=== PATIENT | female | born 1945 | race Caucasian/White ===

== ENCOUNTER 2017-08-27 07:13 | Emergency (ER) | payer MEDICARE, BC ==
[~2017-08-27] VITALS: Ht 157.5 cm; Wt 66.0 kg
[~2017-08-27 07:13] MED LIST: ASPI-516 CHEW; CITA40TA4 PO; DIAZ2 PO; DULC10SU3 RECTAL; FLUT50SP EACH NARE; LEVO50TA4 PO; LYRI75CA PO; MAGICADU2 SWISH-SWAL; METO25TA3 PO; METO5TAB PO; PANT40TA3 PO; PERI8.6T PO; SUMA6INJ SQ; TRAM50TA PO
[2017-08-27 07:15] VITALS: BP 151/72; PULSE 88; RESP 18; TEMP 97.8; O2SAT 95
[2017-08-27] MEDS ORDERED: SODIUM CHLOR 0.9% 1000 ML INJ 1,000 ML IV SCH (07:47)
--- NOTE | 2017-08-27 07:58 | PD ---
HPI Chief Complaint: Flank/Kidney Pain Time Seen by Provider: 07:36 Travel History International Travel<30 days: No Contact w/Intl Traveler<30days: No Traveled to known affect area: No History of Present Illness HPI This 71 year-old woman presents to the emergency department complaining of abdominal pain. She reports she's had a history of intermittent right sided abdominal pain is been going on for several months. She had similar pains yesterday. Early this morning however she started to develop severe left-sided abdominal pain. Is associated with nausea. She looks a little bit of retching yesterday but no vomiting today. She also has urinary symptoms, feeling like she has to urinate or have any go urinate frequently. No fevers or chills. Only abdominal surgical history is previous appendectomy. She was worked up for gallbladder problems with her previous right sided abdominal pains. She takes tramadol for chronic pain and fibromyalgia. Chest has chronic trouble with constipation. She had a little bit of diarrhea yesterday and took some Imodium and feels constipated now. History Past Medical History Narrative Medical Migraines Depression Hypertension TIA, on Plavix Social History Alcohol Use: No Tobacco Use: No Allergies-Medications (Allergen,Severity, Reaction): Coded Allergies: penicillin G (Unverified Allergy, Mild, vaginitis, 08/27/17) Reported Meds & Prescriptions Reported Meds & Active Scripts Active Magic Mouthwash Adult Liq (Multi-Ingredient Mouthwash/Gargle) 120 Ml Susp 5 Ml SWISH-SWAL ACHS Each 5mL contains: Nystatin 200,000units, Diphenhydramine 4.25mg, Viscous Lidocaine 10mg, Schmid syrup 0.8 mL Tramadol (Tramadol HCl) 50 Mg Tab 50 Mg PO BID PRN Citalopram (Citalopram Hydrobromide) 40 Mg Tab 40 Mg PO DAILY Fluticasone Nasal [place] 50 Mcg/Act Naspr 50 Mcg EACH NARE BID 50 mcg/spray Sumatriptan Inj (Sumatriptan Succinate) 6 Mg/0.5 M[address] Ctr 6 Mg SQ ONCE PRN May repeat dose in 1 hour if needed. Rebeca-Colace (Sennosides-Docusate Sodium) 8.6-50 Mg Tab 1 Tab PO BID PRN Metoclopramide (Metoclopramide HCl) 5 Mg Tab 5 Mg PO TIDAC Valium (Diazepam) 2 Mg Tab 2 Mg PO BID PRN Dulcolax Supp (Bisacodyl) 10 Mg Supp 10 Mg RECTAL DAILY PRN Pantoprazole (Pantoprazole Sodium) 40 Mg Tab 40 Mg PO DAILY Metoprolol Tartrate 25 Mg Tab 25 Mg PO DAILY Aspirin 81 Mg Chew 81 Mg CHEW DAILY Levothyroxine (Levothyroxine Sodium) 50 Mcg Tab 50 Mcg PO DAILY Lyrica (Pregabalin) 75 Mg Cap 75 Mg PO BID Review of Systems Except as stated in HPI: all other systems reviewed are Neg Physical Exam Narrative GENERAL: Well-appearing 71 year-old woman, no acute distress. SKIN: Focused skin assessment warm/dry. HEAD: Atraumatic. Normocephalic. EYES: Pupils equal and round. No scleral icterus. No injection or drainage. CARDIOVASCULAR: Regular rate and rhythm. No murmur appreciated. RESPIRATORY: No accessory muscle use. Clear to auscultation. Breath sounds equal bilaterally. GASTROINTESTINAL: Admits flat and soft. Minimal left-sided abdominal tenderness. No CVA tenderness percussion. MUSCULOSKELETAL: No obvious deformities. No clubbing. No cyanosis. No edema. NEUROLOGICAL: Awake and alert. No obvious cranial nerve deficits. Motor grossly within normal limits. Normal speech. PSYCHIATRIC: Appropriate mood and affect; insight and judgment normal. Data Data Last Documented VS Vital Signs Date Time Temp Pulse Resp B/P (MAP) Pulse Ox O2 Delivery O2 Flow Rate FiO2 08/27/17 08:46 18 08/27/17 08:08 71 152/69 (96) 98 Room Air 08/27/17 07:15 97.8 Orders Orders Urinalysis - C+S If Indicated (08/27/17 07:30) Complete Blood Count With Diff (08/27/17 07:47) Comprehensive Metabolic Panel (08/27/17 07:47) Lipase (08/27/17 07:47) Ct Abd/Pel W Iv Contrast(Rout) (08/27/17 07:47) Iv Access Insert/Monitor (08/27/17 07:47) Ecg Monitoring (08/27/17 07:47) Oximetry (08/27/17 07:47) Morphine Inj (Morphine Inj) (08/27/17 08:00) Ondansetron Inj (Zofran Inj) (08/27/17 08:00) Sodium Chlor 0.9% 1000 Ml Inj (Ns 1000 M (08/27/17 07:47) Sodium Chloride 0.9% Flush (Ns Flush) (08/27/17 08:00) Iohexol 350 Inj (Omnipaque 350 Inj) (08/27/17 09:20) Labs Laboratory Tests Test 08/27/17 08:00 08/27/17 08:25 White Blood Count 7.1 TH/MM3 Red Blood Count 4.30 MIL/MM3 Hemoglobin 14.0 GM/DL Hematocrit 40.7 % Mean Corpuscular Volume 94.5 FL Mean Corpuscular Hemoglobin 32.5 PG Mean Corpuscular Hemoglobin Concent 34.3 % Red Cell Distribution Width 13.3 % Platelet Count 212 TH/MM3 Mean Platelet Volume 8.6 FL Neutrophils (%) (Auto) 52.1 % Lymphocytes (%) (Auto) 31.1 % Monocytes (%) (Auto) 12.5 % Eosinophils (%) (Auto) 3.3 % Basophils (%) (Auto) 1.0 % Neutrophils # (Auto) 3.7 TH/MM3 Lymphocytes # (Auto) 2.2 TH/MM3 Monocytes # (Auto) 0.9 TH/MM3 Eosinophils # (Auto) 0.2 TH/MM3 Basophils # (Auto) 0.1 TH/MM3 CBC Comment DIFF FINAL Differential Comment Blood Urea Nitrogen 19 MG/DL Creatinine 0.79 MG/DL Random Glucose 93 MG/DL Total Protein 6.6 GM/DL Albumin 3.8 GM/DL Calcium Level 8.8 MG/DL Alkaline Phosphatase 79 U/L Aspartate Amino Transf (AST/SGOT) 20 U/L Alanine Aminotransferase (ALT/SGPT) 21 U/L Total Bilirubin 0.2 MG/DL Sodium Level 140 MEQ/L Potassium Level 3.9 MEQ/L Chloride Level 106 MEQ/L Carbon Dioxide Level 26.9 MEQ/L Anion Gap 7 MEQ/L Estimat Glomerular Filtration Rate 72 ML/MIN Lipase 308 U/L Urine Color LIGHT-ORANGE Urine Turbidity CLEAR Urine pH 5.5 Urine Specific [place] 1.008 Urine Protein NEG mg/dL Urine Glucose (UA) NEG mg/dL Urine Ketones NEG mg/dL Urine Occult Blood NEG Urine Nitrite NEG Urine Bilirubin NEG Urine Urobilinogen LESS THAN 2.0 MG/DL Urine Leukocyte Esterase MOD Urine RBC 1 /hpf Urine WBC 3 /hpf Urine Squamous Epithelial Cells <1 /hpf Urine Bacteria RARE /hpf Urine Mucus FEW /lpf Microscopic Urinalysis Comment CULT NOT INDICATED MDM Medical Decision Making Medical Screen Exam Complete: Yes Emergency Medical Condition: Yes Interpretation(s) LABS: CBC unremarkable. CMP unremarkable. Lipase is normal. UA is unremarkable. CT abdomen and pelvis: Moderate size hiatal hernia. Uncomplicated sigmoid diverticulosis. Differential Diagnosis Diverticulitis, UTI, constipation, chronic pain, other Narrative Course Medical decision making INITIAL: 71 year-old woman presents to the emergency department complaining of left-sided abdominal pain. Looks a little bit uncomfortable but nontoxic. Minimal tenderness in the left side of the abdomen. Possible diverticulitis. Patient had a lot of abdominal problems for what sounds like on a clear etiology , attributed to constipation. We'll check labs urine CT reassess. Diagnosis Primary Impression: Abdominal pain Patient Instructions: General Instructions Additional Instructions: Take Bentyl as needed for abdominal pain. Follow-up with her primary doctor in the next 2-4 days. Return to the emergency department for any new or worsening symptoms. Med/Other Pt SpecificInfo: Prescription(s) given Scripts Dicyclomine (Bentyl) 10 Mg Cap 10 MG PO TID Y for Bowel Management, #15 CAP 0 Refills Prov: Lele Kumar MD 08/27/17 Disposition: 01 DISCHARGE HOME Condition: Stable Lele Kumar MD Aug 27, 2017 07:58
[2017-08-27] MEDS ORDERED: ONDANSETRON HCL 4 MG/2 ML VIAL IVP ONE (08:00)
[2017-08-27] MEDS ORDERED: SODIUM CHLORIDE 0.9% FLUSH 10 ML FLUSH IV FLUSH PRN (08:00)
[2017-08-27] MEDS ORDERED: MORPHINE SULFATE 4 MG/ML INJ IV PUSH ONE (08:00)
[2017-08-27 08:08] VITALS: BP 152/69; PULSE 71; RESP 18; O2SAT 98
[2017-08-27 08:20] LABS: AUTOMATED NEUTROPHIL # 3.7 TH/MM3 (1.8-7.7); BASOPHIL # 0.1 TH/MM3 (0-0.2); EOSINOPHIL # 0.2 TH/MM3 (0-0.4); EOSINOPHIL % 3.3 % (0.0-4.0); HEMATOCRIT 40.7 % (35.0-46.0); HEMO FLAGS DIFF FINAL; LYMPH % 31.1 % (9.0-44.0); LYMPHOCYTE # 2.2 TH/MM3 (1.0-4.8); MEAN CELL VOLUME 94.5 FL (80.0-100.0); MEAN CORPUSCULAR HEMOGLOBIN 32.5 PG (27.0-34.0); MEAN CORPUSCULAR HGB CONC 34.3 % (32.0-36.0); MONO % 12.5 % (0.0-8.0); NEUT % 52.1 % (16.0-70.0); PLATELET COUNT 212 TH/MM3 (150-450); RED CELL DISTRIBUTION WIDTH 13.3 % (11.6-17.2); WHITE BLOOD COUNT 7.1 TH/MM3 (4.0-11.0)
[2017-08-27 08:35] LABS: ALT (GPT) 21 U/L (10-53)
[2017-08-27 08:38] LABS: ALKALINE PHOSPHATASE 79 U/L (45-117); TOTAL BILIRUBIN ADULT 0.2 MG/DL (0.2-1.0)
[2017-08-27 08:42] LABS: ANION GAP 7 MEQ/L (5-15); AST (GOT) 20 U/L (15-37); BICARBONATE 26.9 MEQ/L (21.0-32.0); BLOOD UREA NITROGEN 19 MG/DL (7-18); CHLORIDE 106 MEQ/L (98-107); GLOMERULAR FILTRATION RATE 72 ML/MIN (>89); POTASSIUM 3.9 MEQ/L (3.5-5.1); SODIUM (NA) 140 MEQ/L (136-145)
[2017-08-27 09:00] LABS: BACTERIA, URINE RARE /hpf; BLOOD, URINE NEG (NEG); COMMENT (UR) CULT NOT INDICATED; CULTURE IF INDICATED CULT NOT INDICATED; GLUCOSE,URINE NEG (NEG); KETONE, URINE NEG (NEG); MUCUS URINE FEW /lpf (OCC); NITRITE,URINE NEG (NEG); PH, URINE 5.5 (5.0-8.5); SQUAMOUS EPITHELIAL CELL URINE <1 /hpf (0-5)
[2017-08-27 09:03] LABS: URINE COLOR LIGHT-ORANGE (YELLW/STRAW)
[2017-08-27] MEDS ORDERED: IOHEXOL 350 MG/ML 10 ML VIAL (for RAD DIAG) IVCONTRAST ONE (09:20)
--- NOTE | 2017-08-27 09:28 | RADRPT ---
EXAM DATE/TIME: 08/27/2017 08:57 [facility] COMPARISON: CT ABDOMEN & PELVIS W CONTRAST, June 20, 2015, 18:59. INDICATIONS : Left sided upper abdominal pain. IV CONTRAST: 94 cc Omnipaque 350 (iohexol) IV ORAL CONTRAST: No oral contrast ingested. RADIATION DOSE: 6.71 CTDIvol (mGy) MEDICAL HISTORY : None SURGICAL HISTORY : Appendectomy. Lumpectomy. ENCOUNTER: Initial ACUITY: 1 day PAIN SCALE: 5/10 LOCATION: Left upper quadrant TECHNIQUE: Volumetric scanning of the abdomen and pelvis was performed. Using automated exposure control and ad justment of the mA and/or kV according to patient size, radiation dose was kept as low as reasonably achievable to obtain optimal diagnostic quality images. DICOM format image data is available electro nically for review and comparison. FINDINGS: LOWER LUNGS: The visualized lower lungs are clear. LIVER: Homogeneous density without lesion. There is no dilation of the biliary tree. No calcified gallston es. SPLEEN: Normal size without lesion. PANCREAS: Within normal limits. KIDNEYS: Normal in size and shape. There is no mass, stone or hydronephrosis. ADRENAL GLANDS: Within normal limits. VASCULAR: There is no aortic aneurysm. BOWEL/MESENTERY: A moderate-sized hiatal hernia is stable. Uncomplicated sigmoid diverticulosis is noted. No acute div erticulitis is noted. ABDOMINAL WALL: Within normal limits. RETROPERITONEUM: There is no lymphadenopathy. BLADDER: No wall thickening or mass. REPRODUCTIVE: Within normal limits. INGUINAL: There is no lymphadenopathy or hernia. MUSCULOSKELETAL: Within normal limits for patient age. CONCLUSION: 1. Moderate-sized hiatal hernia. 2. Uncomplicated sigmoid diverticulosis. Rahul Goldstein MD on August 27, 2017 at 9:21 Board Certified Radiologist. This report was verified electronically.
[2017-08-27] MEDS ORDERED: DICY10 PO (09:50)
[2017-08-27] MEDS ORDERED: DICYCLOMINE HCL 20 MG/2 ML VIAL IM ONE (10:15)
[2017-08-27 10:29] VITALS: BP 164/86; PULSE 74; RESP 22; O2SAT 98
[2017-08-27 10:48] VITALS: BP 149/84
== END 2017-08-27 10:50 | disposition home or self-care (01) ==
LOC: NEPC 07:13
DX: R10.9 Unspecified abdominal pain (principal); I10 Essential (primary) hypertension; K59.00 Constipation, unspecified
CPT/HCPCS: 74177; 80053; 81001; 83690; 85025; 96361; 96372; 96374; 96375; 99285; J0500; J2270; J2405; J7030; Q9967